=== PATIENT | male | born 1970 | race Caucasian/White ===

== ENCOUNTER 2018-12-31 13:10 | Emergency (ER) | payer OTHER ==
[~2018-12-31] VITALS: Ht 177.8 cm; Wt 85.0 kg
[2018-12-31] MEDS ORDERED: KETOROLAC TROMETHAMINE 30 MG/ML VIAL IM ONE (13:45)
[2018-12-31] MEDS ORDERED: BACITRACIN 0.9 GM PACKET OINTMENT TP ONE (13:45)
[2018-12-31] MEDS ORDERED: PERTUSS(ACELL),DIPH,TET VAC/PF 0.5 ML VIAL IM ONE (13:45)
[2018-12-31] MEDS ORDERED: LIDOCAINE 1% 10 ML VIAL INJ ONE (13:45)
[2018-12-31 14:54] VITALS: BP 129/83
== END 2018-12-31 14:53 | disposition home or self-care (01) ==
LOC: EMS 13:11
DX: S51.812A Laceration without foreign body of left forearm, initial encounter (principal); F17.210 Nicotine dependence, cigarettes, uncomplicated; W26.0XXA Contact with knife, initial encounter; Y93.89 Activity, other specified; Y92.89 Other specified places as the place of occurrence of the external cause; Y99.8 Other external cause status
CPT/HCPCS: 12002; 90471; 90715; 96372; 99283; 99406; J1885; J3490